=== PATIENT | male | born 1980 ===

== ENCOUNTER → 2022-03-31 12:22 | Outpatient (CLI) | payer OTHER, SELFPAY ==
--- NOTE | ~2022-03-31 | MR_ITS ---
EXAMINATION: MR knee LT wo con DATE: 03/31/2022 13:03 INDICATION: Chronic left knee pain. TECHNIQUE: Magnetic resonance imaging (MRI) of the left knee was performed without intravenous contra st. Sequences included axial PD-weighted FS FSE, coronal PD-weighted FSE and PD-weighted FS FSE, sagi ttal PD-weighted FSE, and sagittal T2-weighted FS FSE. COMPARISON: None. FINDINGS: Medial compartment: There is a radial tear of posterior horn of medial meniscus. There is extensive partial thickness car tilage loss of tibial condyle, deep at the medial articular surface where there is mild subchondral e kamar-like marrow signal intensity. There is extensive partial thickness cartilage loss of femoral con dyle, deep at the central, medial, and posterior articular surface with mild subchondral edema-like m arrow signal intensity. Osteophytes are noted. Lateral compartment: Lateral meniscus is normal. There is cartilage surface irregularity of tibial condyle and femoral con dyle. Osteophytes are noted. Patellofemoral compartment: There is shallow partial-thickness cartilage loss of patellar lateral facet. There is shallow partial -thickness cartilage loss of medial trochlea. Osteophytes are noted. Ligaments and tendons: The anterior and posterior cruciate ligaments are normal. There is a partial tear of medial collatera l ligament proximally with surrounding edema (grade 2 sprain). There are changes of prior sprain of f ibular collateral ligament characterized by thickening and increased signal intensity. There is mild patellar tendinopathy. Fluid: There is a moderate-sized knee joint effusion. There is trace fluid in a Bowling's cyst. There is mild prepatellar and superficial infrapatellar bursitis. IMPRESSION: 1. Moderate chondrosis of medial compartment and mild chondrosis of lateral and patellofemoral compar tments. 2. Tear of medial meniscus. 3. Grade 2 sprain of medial collateral ligament. 4. Moderate-sized knee joint effusion. Reviewed, dictated and finalized at location A. [employer] IMPRESSION: 1. Moderate chondrosis of medial compartment and mild chondrosis of lateral and patellofemoral compartments. 2. Tear of medial meniscus. 3. Grade 2 sprain of medial collateral ligament. 4. Moderate-sized knee joint effusion.
== END ==
PROVIDERS: PCP Nurse Practitioner; Visit Provider Nurse Practitioner
DX: S83.242A Other tear of medial meniscus, current injury, left knee, initial encounter (principal); X58.XXXA Exposure to other specified factors, initial encounter; M25.461 Effusion, right knee
CPT/HCPCS: 73721